=== PATIENT | male | born 1975 | race Caucasian/White ===

== ENCOUNTER → 2018-05-24 | Outpatient (CLI) | payer OTHER ==
[~2018-05-24] MED LIST: DURICEF500 MG PO; PREDNISONE20 MG PO; VENTOLIN0.09 MG IH
== END ==
LOC: COL.RAD 05-23 14:45
DX: M51.37 Other intervertebral disc degeneration, lumbosacral region (principal); M50.31 Other cervical disc degeneration, high cervical region

== ENCOUNTER 2020-05-27 22:00 | Emergency (ER) | payer OTHER ==
[~2020-05-27] VITALS: Ht 195.6 cm; Wt 79.5 kg
[2020-05-27] MEDS ORDERED: NAPROXEN 3375 MG/TAB PO (23:17)
[2020-05-27 23:33] VITALS: BP 135/76; PULSE 71; TEMP 98.1
== END 2020-05-27 23:33 | disposition home or self-care (01) ==
LOC: COL.ER 22:00
DX: M25.552 Pain in left hip (principal); Z79.52 Long term (current) use of systemic steroids
CPT/HCPCS: J1885